=== PATIENT | female | born 1940 | race Caucasian/White ===

== ENCOUNTER 2020-12-26 10:08 | Emergency (ER) | payer MEDICARE ==
[2020-12-26 12:47] LABS: BASOPHIL 0.6 % (0-2); EOSINOPHIL 7.3 % (0-7); HCT 36.3 % (37.0-47.0); HGB 11.6 g/dl (12.5-16.0); LYMPHOCYTE 18.3 % (15-48); MCH 29.3 pg (25.0-31.0); MCV 91.7 fL (78.0-100.0); MONOCYTE 12.8 % (0-12); MPV 10.2 fL (6.0-9.5); NEUTROPHIL 60.7 % (41-80); NRBC 0; PLT 224 K/uL (150-400); RBC 3.96 M/uL (4.20-5.40); RDW 13.4 % (11.5-14.0); WBC 3.3 K/uL (4.0-10.5)
[2020-12-26 13:10] LABS: BUN/CREAT RATIO (CALC) 20.4 RATIO; CREATININE 1.13 mg/dL (0.51-0.95)
[2020-12-26] MEDS ORDERED: VENTOLIN HFA IN18 GM INH (13:33)
== END 2020-12-26 14:02 | disposition home or self-care (01) ==
LOC: FER 10:08
PROVIDERS: Nurse Practitioner Family
DX: U07.1 COVID-19 (principal); I10 Essential (primary) hypertension; Z88.2 Allergy status to sulfonamides; Z88.5 Allergy status to narcotic agent
CPT/HCPCS: 36415; 71045; 80048; 85025; 85379; J1100; U0002